=== PATIENT | male | born 1980 | race Caucasian/White ===

== ENCOUNTER 2019-09-07 11:45 | Emergency (ER) | payer MEDICAID ==
[~2019-09-07] VITALS: Ht 167.6 cm; Wt 81.6 kg
--- NOTE | 2019-09-07 11:56 | NUR ---
Patient ambulated to bed 8. RN evaluating patient at bedside.
[2019-09-07 11:58] VITALS: BP 129/89
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
--- NOTE | 2019-09-07 12:22 | NUR ---
Dr. Hu is evaluating the patient at bedside.
[2019-09-07] MEDS ORDERED: KETOROLAC 60 MG/2 ML VIAL IM ONE (12:30)
--- NOTE | 2019-09-07 13:04 | NUR ---
Patient returned from XRAY. RN re-evaluating patient at bedside.
[2019-09-07 14:18] VITALS: BP 118/82
--- NOTE | 2019-09-07 14:18 | NUR ---
Patient discharged TO HOME. Written and verbal after care instructions given and explained. Rx of ANAPROX given. Patient educated on indication of medication including possible reaction and side effects. All questions addressed prior to discharge. ID band removed. Patient advised to follow up with PMD.
== END 2019-09-07 14:18 | disposition home or self-care (01) ==
LOC: MED 11:45
DX: S13.9XXA Sprain of joints and ligaments of unspecified parts of neck, initial encounter (principal); S13.4XXA Sprain of ligaments of cervical spine, initial encounter; V89.2XXA Person injured in unspecified motor-vehicle accident, traffic, initial encounter; Y93.89 Activity, other specified; Y92.410 Unspecified street and highway as the place of occurrence of the external cause; Y99.8 Other external cause status
CPT/HCPCS: 72040; 72100; 96372; 99283; J1885

== ENCOUNTER 2020-04-10 14:50 | Emergency (ER) | payer MEDICAID ==
[~2020-04-10] VITALS: Ht 177.8 cm; Wt 78.9 kg
[2020-04-10 15:02] VITALS: BP 144/74
--- NOTE | 2020-04-10 15:07 | NUR ---
Patient w/c assisted to bed 2.
--- NOTE | 2020-04-10 15:09 | NUR ---
DR [facility]
[2020-04-10] MEDS ORDERED: MORPHINE SULFATE 4 MG/ML SYR IVP ONE ×2 (15:25→16:45)
--- NOTE | 2020-04-10 15:29 | NUR ---
HEMATURIA, ABDOMINAL PAIN LLQ X THIS MORNING, 10/10 PAIN. PT PRESENTS PALE, TACHYPNIC DUE TO SEVERE PAIN IN THE LLQ REGION. PT AOX4 , AFIBRILE , AMBULATORY WITH STEADY GAET , PAIN UPON TOUCH HYPOGASTRIC AREA , FLAT SOFT ABDOMEN. NO HX SX HERNIA
[2020-04-10 15:35] LABS: BASOPHILS # (AUTO) 0.1 K/uL (0.00-0.22); BASOPHILS % (AUTO) 0.7 % (0.0-2.0); EOSINOPHILS # (AUTO) 0.2 K/uL (0-0.4); EOSINOPHILS % (AUTO) 2.2 % (0.0-4.0); HEMOGLOBIN 16.1 g/dL (12.0-18.0); LYMPHOCYTES % (AUTO) 29.1 % (20.5-51.1); MEAN CORPUSCULAR HEMOGLOBIN 30 pg (27-31); MEAN CORPUSCULAR HGB CONC 34 g/dL (33-37); MONOCYTES # (AUTO) 0.8 K/uL (0.8-1.0); MONOCYTES % (AUTO) 7.3 % (1.7-9.3); NEUTROPHILS # (AUTO) 6.3 K/uL (1.8-7.7); NEUTROPHILS % (AUTO) 60.7 % (42.2-75.2); PLATELET COUNT (AUTO) 221 K/uL (140-450); RED BLOOD CELL COUNT(AUTO) 5.46 MIL/uL (4.20-6.10); RED CELL DISTRIBUTION WIDTH 13.4 % (11.6-13.7); WHITE BLOOD COUNT (AUTO) 10.3 K/uL (4.8-10.8)
--- NOTE | 2020-04-10 15:37 | NUR ---
GALA SEGUNDO INSTILLED IV AT RT HAND AND ADMINISTERED MEDS.
--- NOTE | 2020-04-10 15:38 | NUR ---
TO CT SCAN VIA [facility] , PT AOX4 , AFIBRILE, WITH STABLE V/S.
--- NOTE | 2020-04-10 15:45 | NUR ---
PT BACK FROM CT SCAN.
[2020-04-10 15:50] LABS: ANION GAP 17.8 (8-16); CARBON DIOXIDE 24.5 mmol/L (21-32); CREATININE 1.2 mg/dL (0.6-1.3); POTASSIUM 3.3 mmol/L (3.5-5.1)
--- NOTE | 2020-04-10 15:51 | NUR ---
DR KING AT BEDSIDE REEVALUATING PT WITH NICOL GARCES .
--- NOTE | 2020-04-10 15:57 | NUR ---
PT AMBULATED TO RESTROOM WITH STEADY GAET.
[2020-04-10 16:12] LABS: APPEARANCE,URINE CLEAR (CLEAR); BILIRUBIN,URINE 1+ (NEGATIVE); BLOOD, URINE 3+ (NEGATIVE); COLOR,URINE RED (YELLOW); LEUKOCYTE ESTERASE ,URINE TRACE (NEGATIVE); NITRITE, URINE POSITIVE (NEGATIVE); UGLUCOSE TRACE (NEGATIVE)
--- NOTE | 2020-04-10 16:35 | NUR ---
DR KING AND NICOL GARCES AT BEDSIDE REEVALAUTING PT.
[2020-04-10] MEDS ORDERED: cefTRIAXone 1,000 MG VIAL ONE (16:50)
--- NOTE | 2020-04-10 17:30 | NUR ---
PT COMFORTABLE IN BED SIDE RAILS UP X1 AND LOCK , NO COMPLAINTOF PAIN AT THIS TIME.
[2020-04-10 17:39] VITALS: BP 149/98
--- NOTE | 2020-04-10 17:40 | NUR ---
Patient discharged with v/s stable. Written and verbal after care instructions given and explained regarding kidney stone. Patient alert, oriented and verbalized understanding of instructions. Ambulatory with steady gait. All questions addressed prior to discharge. ID band removed. Patient advised to follow up with PMD. Rx of ibuprofen , cephalexin , norco and tylenol given. Patient educated on indication of medication including possible reaction and side effects. Opportunity to ask questions provided and answered.
[2020-04-10 17:49] LABS: RBC,URINE TOO NUMEROUS TO COUN /HPF (0-5)
[2020-04-10 17:50] LABS: WBC,URINE 16-25 (MOD) /HPF (0-5)
== END 2020-04-10 17:40 | disposition home or self-care (01) ==
LOC: MED 14:50
DX: N12 Tubulo-interstitial nephritis, not specified as acute or chronic (principal); N39.0 Urinary tract infection, site not specified; Z98.890 Other specified postprocedural states
CPT/HCPCS: 36415; 74176; 80048; 81001; 85025; 87086; 87186; 96365; 96375; 99284; J0696; J2270

== ENCOUNTER 2020-04-12 16:43 | Emergency (ER) | payer MEDICAID ==
[~2020-04-12] VITALS: Ht 172.7 cm; Wt 80.4 kg
[2020-04-12 16:52] VITALS: BP 142/88
--- NOTE | 2020-04-12 16:59 | NUR ---
39 Y/O M C/C RECHECK. PT SEEN 04/10 IN [facility] ER, PER PT TOLD BY ERMD TO COME BACK FOR RECHECK. PT PRESENTS EUPNIC,VSS,AMBULATORY,A/OX4,NO PAIN. NO HX.
--- NOTE | 2020-04-12 17:06 | NUR ---
KRISTIN AT CHAIR A
[2020-04-12 17:19] VITALS: BP 142/88
--- NOTE | 2020-04-12 17:20 | NUR ---
Patient discharged with v/s stable. Written and verbal after care instructions given and explained. Patient verbalized understanding. Ambulatory with steady gait. All questions addressed prior to discharge. Advised to follow up with PMD.
== END 2020-04-12 17:20 | disposition home or self-care (01) ==
LOC: MED 16:43
DX: N20.0 Calculus of kidney (principal)
CPT/HCPCS: 81002; 99281; 99282

== ENCOUNTER 2021-10-31 09:32 | Emergency (ER) | payer MEDICAID ==
[~2021-10-31] VITALS: Ht 165.1 cm; Wt 81.6 kg
[2021-10-31 09:35] VITALS: BP 146/101
--- NOTE | 2021-10-31 09:45 | NUR ---
HERNAN. HANDED ON URINE CUP.
--- NOTE | 2021-10-31 10:01 | NUR ---
PT AMBULATED TO ER BED 04
--- NOTE | 2021-10-31 10:15 | NUR ---
41 Y/O MALE BIB SELF FROM HOME. C/O RLQ ABDOMINAL PAIN. HEMATURIA, NAUSEA, AND VOMITING X 3 DAYS. PATIENT STATE PAIN IS 8 OUT OF 10, STABBING/ CONSTANT RADIATED TO THE R LOWER ABDOMEN. PATIENT DENIES AGGRAVATING OR ALLEVIATING FACTORS. ABDOMEN TENDER TO PALPATION. DENIES DYSURIA, DIARRHEA, CONSTIPATION, NO FEVER OR CHILLS. DENIES MEDICATION PRIOR TO ARRIVAL. BED LOCKED IN LOWEST POSITION. SIDE RAILS X1. CALL LIGHT WITHIN REACH. PMH: KIDNEY STONES MEDS: NORCO/IBUPROFEN SX: HERNIA REPAIR
--- NOTE | 2021-10-31 11:20 | NUR ---
Dr. Harris is evaluating patient at bedside with Ultrasound
[2021-10-31 11:51] LABS: BASOPHILS % (AUTO) 0.3 % (0.0-2.0); EOSINOPHILS # (AUTO) 0.1 K/uL (0-0.4); EOSINOPHILS % (AUTO) 0.7 % (0.0-4.0); HEMOGLOBIN 15.9 g/dL (12.0-18.0); LYMPHOCYTES # (AUTO) 1.8 K/uL (2.0-11.5); LYMPHOCYTES % (AUTO) 12.3 % (20.5-51.1); MEAN CORPUSCULAR HEMOGLOBIN 30 pg (27-31); MEAN CORPUSCULAR HGB CONC 34 g/dL (33-37); MEAN CORPUSCULAR VOLUME 87.1 fL (80-94); MONOCYTES # (AUTO) 1.2 K/uL (0.8-1.0); MONOCYTES % (AUTO) 8.2 % (1.7-9.3); NEUTROPHILS # (AUTO) 11.3 K/uL (1.8-7.7); NEUTROPHILS % (AUTO) 78.5 % (42.2-75.2); PLATELET COUNT (AUTO) 221 K/uL (140-450); WHITE BLOOD COUNT (AUTO) 14.4 K/uL (4.8-10.8)
[2021-10-31 11:52] LABS: APPEARANCE,URINE SL CLOUDY (CLEAR); BILIRUBIN,URINE NEGATIVE (NEGATIVE); BLOOD, URINE 3+ (NEGATIVE); COLOR,URINE YELLOW (YELLOW); LEUKOCYTE ESTERASE ,URINE NEGATIVE (NEGATIVE); NITRITE, URINE NEGATIVE (NEGATIVE); UGLUCOSE NEGATIVE (NEGATIVE)
[2021-10-31 12:15] LABS: ALBUMIN 3.9 g/dL (3.4-5.0); ANION GAP 13.6 (8-16); CARBON DIOXIDE 27.3 mmol/L (21-32); CREATININE 0.9 mg/dL (0.6-1.3); POTASSIUM 3.9 mmol/L (3.5-5.1); TOTAL BILIRUBIN 0.5 mg/dL (0.0-1.0)
[2021-10-31] MEDS ORDERED: NACL 0.9% 1,000 ML IV ONE (12:15)
[2021-10-31] MEDS ORDERED: KETOROLAC 30 MG/ML VIAL IVP ONE (12:15)
[2021-10-31] MEDS ORDERED: MORPHINE SULFATE 4 MG/ML SYR IVP ONE (12:15)
[2021-10-31 12:21] LABS: RBC,URINE 50-80 /HPF (0-5)
--- NOTE | 2021-10-31 12:29 | NUR ---
PATIENT TRANSPORTED TO CT BY [facility]
--- NOTE | 2021-10-31 12:40 | NUR ---
PATIENT RETURNED FROM CT VIA [facility]
--- NOTE | 2021-10-31 13:25 | NUR ---
Patient appears to be resting comfortably in bed. Pain 0/10, denies nausea. Vital Signs within normal limits. Respirations even and unlabored.
[2021-10-31] MEDS ORDERED: ACET-9527 PO (14:10)
[2021-10-31] MEDS ORDERED: TAMS0.4C96 PO (14:13)
--- NOTE | 2021-10-31 14:16 | NUR ---
Patient resting in semi-fowlers position and states pain remains 0/10. compliance monitor in place showing VSS. Respirations even/unlabored. Bed locked in lowest position, side rails x 1.
[2021-10-31 15:49] VITALS: BP 126/82
--- NOTE | 2021-10-31 15:52 | NUR ---
Patient discharged with v/s stable. Written and verbal after care instructions given and explained. Patient alert, oriented and verbalized understanding of instructions. Ambulatory with steady gait. All questions addressed prior to discharge. ID band removed. Patient advised to follow up with PMD. Rx of [place]/tamsulocin were given. Patient educated on indication of medication including possible reaction and side effects. Opportunity to ask questions provided and answered.
== END 2021-10-31 15:49 | disposition home or self-care (01) ==
LOC: MED 09:32
DX: N23 Unspecified renal colic (principal); R31.9 Hematuria, unspecified; Z87.442 Personal history of urinary calculi
CPT/HCPCS: 36415; 74176; 80053; 81001; 85025; 96361; 96374; 96375; 99284; J1885; J2270; J7030

== ENCOUNTER 2023-03-29 12:22 | Emergency (ER) | payer MEDICAID ==
[~2023-03-29] VITALS: Ht 167.6 cm; Wt 82.6 kg
[~2023-03-29 12:22] MED LIST: ACET-9527 PO; TAMS0.4C96 PO
[2023-03-29 12:33] VITALS: BP 130/88; RESP 20; O2SAT 97
[2023-03-29] MEDS ORDERED: KETOROLAC 30 MG/ML VIAL IM ONE (12:55)
[2023-03-29] MEDS ORDERED: DEXAMETHASONE 10 MG/ML VIAL IM ONE (12:55)
[2023-03-29] MEDS ORDERED: ATA25 PO (13:03)
--- NOTE | 2023-03-29 13:10 | NUR ---
Note salmakolby in EDM - 03/29/23 at 1312 by [email or web address] Patient discharged with v/s stable. Written and verbal after care instructions given and explained. Patient alert, oriented and verbalized understanding of instructions. Ambulatory with steady gait. All questions addressed prior to discharge. ID band removed. Patient advised to follow up with PMD. Rx of ATARAX given. Patient educated on indication of medication including possible reaction and side effects. Opportunity to ask questions provided and answered.
--- NOTE | 2023-03-29 13:14 | NUR ---
PAIN REASSESSMENT: PATIENT STATES PAIN IS BETTER. RATED PAIN 2/10 POST TORADOL. INSTRUCTED TO COME BACKK TO ED IF PAIN WORSEN. PATIENT VERBALIZED UNDERSTANDING.
== END 2023-03-29 13:09 | disposition home or self-care (01) ==
LOC: MED 12:22
DX: L29.9 Pruritus, unspecified (principal); T78.49XA Other allergy, initial encounter; Z79.899 Other long term (current) drug therapy; X58.XXXA Exposure to other specified factors, initial encounter
CPT/HCPCS: 96372; 99284; J1100; J1885